=== PATIENT | male | born 1960 | race Caucasian/White ===

== ENCOUNTER → 2017-02-03 | Outpatient (CLI) | payer BC ==
[~2017-02-03] MED LIST: CEFD300C2 PO; CLB200 PO; ESCI1TAB10 PO; PRED10TA PO; SIMV20TA5 PO; TAMS0.4C38 PO; TRAM-10 PO
--- NOTE | 2017-02-03 11:01 | DIAGNOSTIC IMAGING REPORT ---
CERVICAL SPINE 3 VIEWS HISTORY: Pain M54.2 Cervical pain (neck)[id number] COMPARISON: None. FINDINGS: The cervical spine is visualized from C1 through the superior endplate of T1. There is no fracture. No subluxation. Moderate degenerative disc change from C5 through C7. Prevertebral soft tissues and the atlantodens interval are intact. IMPRESSION: Moderate degenerative change C5-C7. Otherwise no active process of the cervical spine. Electronically signed by: Armando Lord M.D. 02/03/2017 11:00 AM Dictated Date/Time: 02/03/2017 10:59 AM
== END | disposition home or self-care (01) ==
LOC: C.RAD1850 10:48
PROVIDERS: ATTEND Physician Assistant
DX: M47.812 Spondylosis without myelopathy or radiculopathy, cervical region (principal)

== ENCOUNTER → 2017-04-14 | Outpatient (CLI) | payer BC | END | disposition home or self-care (01) | LOC: C.RDSM 12:38 | PROVIDERS: ATTEND Physical Medicine & Rehabilitation Sports Medicine | DX: M79.646 Pain in unspecified finger(s) (principal); M19.042 Primary osteoarthritis, left hand ==

== ENCOUNTER → 2017-06-14 | Outpatient (CLI) | payer BC ==
[2017-06-14 09:36] LABS: BASO % 0.7 %; BASO ABS # 0.03 K/uL (0-0.2); COMPLETE YES; EOS % 3.2 %; IG% 0.2 %; LYMPH ABS # 1.44 K/uL (1.2-3.4); MEAN CELL VOLUME 88.1 fL (80-100); MEAN CORPUSCULAR HEMOGLOBIN 30.1 pg (25-34); MEAN CORPUSCULAR HGB CONC 34.2 g/dl (32-36); MEAN PLATELET VOLUME 10.2 fL (7.4-10.4); MONO % 9.7 %; NEUT % 51.2 %; PLATELET COUNT 332 K/uL (130-400); RED BLOOD COUNT 4.88 M/uL (4.7-6.1); WHITE BLOOD COUNT 4.12 K/uL (4.8-10.8)
[2017-06-14 10:14] LABS: ALT/SGPT 25 U/L (12-78); BLOOD UREA NITROGEN 13 mg/dl (7-18); BUN/CREATININE RATIO 14.8 (10-20); CALCIUM 8.8 mg/dl (8.5-10.1); CARBON DIOXIDE 27 mmol/L (21-32); CHLORIDE 110 mmol/L (98-107); CHOLESTEROL 184 mg/dl (0-200); CREATININE 0.89 mg/dl (0.60-1.40); GLUCOSE 95 mg/dl (70-99); POTASSIUM 4.1 mmol/L (3.5-5.1); SODIUM 142 mmol/L (136-145); TRIGLYCERIDES 106 mg/dl (0-150); VERY LOW DENSITY LIPOPROT CALC 21 mg/dl
[2017-06-14 10:19] LABS: ALKALINE PHOSPHATASE 106 U/L (45-117); AST/SGOT 21 U/L (15-37); CHOLESTEROL/HDL RATIO 3.8; HDL CHOLESTEROL 48 mg/dl; LDL CHOLESTEROL CALCULATED 115 mg/dl
== END | disposition home or self-care (01) ==
LOC: C.LAB1850 08:06
PROVIDERS: ATTEND Internal Medicine
DX: E78.00 Pure hypercholesterolemia, unspecified (principal); N20.0 Calculus of kidney; Z12.5 Encounter for screening for malignant neoplasm of prostate